=== PATIENT | male | born 1950 | race Caucasian/White ===

== ENCOUNTER → 2016-03-16 | Outpatient (CLI) | payer BC, MEDICARE, OTHER ==
[~2016-03-16] MED LIST: ABILIFY5 MG PO; ACIPHEX20 MG PO; ACTOS 45MG45 MG/TAB PO; ALLEGRA-D 12 HO1 TER PO; AVAPRO TAB150 MG/TAB PO; AVAPRO75 MG PO; BYETTA SC; CIPRO 250MG TA250 MG PO; COZAAR 50MG50 MG/TAB PO; CYANOCOBAL1000 MCG/1 IM; DAYQUIL COLD/FL1 SGL PO; DECONAMINE SR 81 CER PO; DOXYCYCLINE 10100 MG PO; Entex LA PO; FLOMAX 0.40.4 MG/CAP PO; FLONASE NASAL S16 GM NS; GLUCOPHAGE XR500 M1 PO; GLUCOPHAGE XR500 MG PO; LAMICTAL150 MG PO; LANTUS100 U/ML SC; LANTUS100 U/ML SQ; LIPITOR 40MG TA40 MG PO; LORTAB 7.5/5001 TAB PO; Lantus Insulin SC; MOTRIN800 MG PO; MVI; NIGHT-TIME COL300 ML PO; NORCO 325 MG-7.1 TAB PO; NOVOLOG 100U100 U/M1; NOVOLOG 100U100 U/M1 SC; NOVOLOG 100U100 U/M1 SQ; OSCAL 500 TAB500 MG PO; PATADAY 2.5 ML2.5 ML OU; PROVENTIL0.09 MG/A1 IH; SINGULAIR 110 MG/TAB PO; SINGULAIR10 MG PO; SYNTHROID 0.0.025 MG PO; TOFRANIL50 MG PO; VESICARE5 MG PO; VIIBRYD20 MG PO; VITAMIN D 400400 IU PO; ZOCOR40 MG PO; ZYRTEC 10MG10 MG PO; prandin PO
== END ==
LOC: BHSO 13:04
DX: F41.1 Generalized anxiety disorder (principal)

== ENCOUNTER → 2016-04-11 | Outpatient (CLI) | payer BC, MEDICARE, OTHER | LOC: COL.RAD 08:20 | DX: C64.2 Malignant neoplasm of left kidney, except renal pelvis (principal); Z90.5 Acquired absence of kidney | CPT/HCPCS: Q9967 ==

== ENCOUNTER → 2016-05-29 | Outpatient (CLI) | payer BC, MEDICARE, OTHER | LOC: BHSO 11:38 | DX: F43.10 Post-traumatic stress disorder, unspecified (principal) ==

== ENCOUNTER → 2016-11-27 | Outpatient (CLI) | payer BC, MEDICARE, OTHER | LOC: BHSO 11:33 | DX: F33.1 Major depressive disorder, recurrent, moderate (principal) ==

== ENCOUNTER → 2016-12-28 | Outpatient (CLI) | payer BC, MEDICARE, OTHER | LOC: COL.RAD 09:57 | DX: Z01.812 Encounter for preprocedural laboratory examination (principal); N20.0 Calculus of kidney; K43.9 Ventral hernia without obstruction or gangrene; Z90.5 Acquired absence of kidney; Z85.528 Personal history of other malignant neoplasm of kidney | CPT/HCPCS: Q9967 ==

== ENCOUNTER → 2017-01-31 | Outpatient (CLI) | payer BC, MEDICARE, OTHER ==
[~2017-01-31] MED LIST changes: +MIDRIN 325 MG-11 CAP PO; +NYQUIL GENERIC PO
== END ==
LOC: BHSO 13:42
DX: F41.1 Generalized anxiety disorder (principal)

== ENCOUNTER 2017-02-16 06:18 | Day surgery (SDC) | payer BC, MEDICARE, OTHER ==
[~2017-02-16] VITALS: Ht 180.3 cm; Wt 96.8 kg
[2017-02-16] VITALS (11 sets, daily range): BP systolic 115–128; BP diastolic 59–95; PULSE 58–76; TEMP 97.5–98.4
[~2017-02-16 06:18] MED LIST changes: -MIDRIN 325 MG-11 CAP PO; -NYQUIL GENERIC PO
[2017-02-16] MEDS ORDERED: MIDRIN 325 MG-11 CAP PO (07:35)
[2017-02-16] MEDS ORDERED: NYQUIL GENERIC PO (07:36)
[2017-02-17] VITALS: BP 118/62; PULSE 71; TEMP 98.8
[2017-02-17 05:30] VITALS: BP 106/58; PULSE 66; TEMP 97.8
[2017-02-17 08:59] VITALS: BP 119/56; PULSE 70; TEMP 98.1
== END 2017-02-17 12:19 | disposition home or self-care (01) ==
LOC: SDCO 06:18 → SURG 12:25 → SDCO 02-17 12:19
DX: K43.2 Incisional hernia without obstruction or gangrene (principal); K21.9 Gastro-esophageal reflux disease without esophagitis; G47.33 Obstructive sleep apnea (adult) (pediatric); E03.9 Hypothyroidism, unspecified; E78.5 Hyperlipidemia, unspecified; I10 Essential (primary) hypertension; Z90.5 Acquired absence of kidney; N39.41 Urge incontinence; Z98.84 Bariatric surgery status
CPT/HCPCS: OP; C1713; C1781; J0690; J1100; J1170; J1815; J1885; J2405; J2704; J2710; J3010; J7030; J7120

== ENCOUNTER 2017-02-20 21:26 | Emergency (ER) | payer BC, MEDICARE, OTHER ==
[~2017-02-20] VITALS: Ht 180.3 cm; Wt 96.4 kg
[~2017-02-20 21:26] MED LIST changes: +MIDRIN 325 MG-11 CAP PO; +NYQUIL GENERIC PO
[2017-02-20 21:30] VITALS: BP 166/79; TEMP 98.5
[2017-02-20] MEDS ORDERED: MAGCITRATE PO (23:35)
[2017-02-21 00:06] VITALS: PULSE 89
== END 2017-02-21 00:08 | disposition home or self-care (01) ==
LOC: COL.ER 21:26
DX: K59.00 Constipation, unspecified (principal); R33.9 Retention of urine, unspecified; J45.909 Unspecified asthma, uncomplicated; I10 Essential (primary) hypertension; Z90.89 Acquired absence of other organs; Z98.52 Vasectomy status; Z79.4 Long term (current) use of insulin

== ENCOUNTER → 2017-03-29 | Outpatient (CLI) | payer BC, MEDICARE, OTHER ==
[~2017-03-29] MED LIST changes: +MAGCITRATE PO
== END ==
LOC: BHSO 09:54
DX: F41.1 Generalized anxiety disorder (principal)
CPT/HCPCS: G0463

== ENCOUNTER → 2017-06-26 | Outpatient (CLI) | payer BC, MEDICARE, OTHER | LOC: BHSO 10:53 | DX: F43.10 Post-traumatic stress disorder, unspecified (principal) | CPT/HCPCS: G0463 ==

== ENCOUNTER → 2017-10-10 | Outpatient (CLI) | payer BC, MEDICARE, OTHER | LOC: BHSO 11:35 | DX: F43.10 Post-traumatic stress disorder, unspecified (principal) | CPT/HCPCS: G0463 ==

== ENCOUNTER → 2018-04-10 | Outpatient (CLI) | payer BC, MEDICARE, OTHER | LOC: BHSO 11:30 | DX: F33.42 Major depressive disorder, recurrent, in full remission (principal) | CPT/HCPCS: G0463 ==

== ENCOUNTER → 2018-10-01 | Outpatient (CLI) | payer BC, MEDICARE | LOC: BHSO 11:23 | DX: F33.41 Major depressive disorder, recurrent, in partial remission (principal) | CPT/HCPCS: G0463 ==

== ENCOUNTER 2018-10-28 10:52 | Outpatient (RCR) | payer OTHER | END 2018-10-29 11:16 | disposition home or self-care (01) | LOC: WSOH 10:52 | DX: S39.012A Strain of muscle, fascia and tendon of lower back, initial encounter (principal); S33.6XXA Sprain of sacroiliac joint, initial encounter; S46.112A Strain of muscle, fascia and tendon of long head of biceps, left arm, initial encounter; X50.0XXA Overexertion from strenuous movement or load, initial encounter; Y92.214 College as the place of occurrence of the external cause; Y99.0 Civilian activity done for income or pay; E78.00 Pure hypercholesterolemia, unspecified; I10 Essential (primary) hypertension; E11.9 Type 2 diabetes mellitus without complications; F43.10 Post-traumatic stress disorder, unspecified; E03.9 Hypothyroidism, unspecified; F32.9 Major depressive disorder, single episode, unspecified ==

== ENCOUNTER → 2019-01-16 | Outpatient (CLI) | payer BC, MEDICARE, OTHER | LOC: COL.RAD 08:21 | DX: Z85.528 Personal history of other malignant neoplasm of kidney (principal); Z90.5 Acquired absence of kidney | CPT/HCPCS: Q9967 ==

== ENCOUNTER → 2019-04-04 | Outpatient (CLI) | payer BC, MEDICARE, OTHER | LOC: BHSO 10:59 | DX: F43.10 Post-traumatic stress disorder, unspecified (principal) | CPT/HCPCS: G0463 ==

== ENCOUNTER → 2019-08-19 | Outpatient (CLI) | payer BC, MEDICARE, OTHER | LOC: BHSO 10:03 | DX: F33.42 Major depressive disorder, recurrent, in full remission (principal) | CPT/HCPCS: G0463 ==

== ENCOUNTER 2019-10-13 09:00 | Outpatient (RCR) | payer BC, MEDICARE, OTHER | END 2019-12-21 | disposition home or self-care (01) | LOC: WSC | DX: M25.552 Pain in left hip (principal) ==

== ENCOUNTER → 2022-05-04 | Outpatient (CLI) | payer BC, MEDICARE, OTHER | LOC: COL.RAD 15:31 | DX: I65.22 Occlusion and stenosis of left carotid artery (principal); I10 Essential (primary) hypertension ==

== ENCOUNTER → 2022-05-05 | Outpatient (CLI) | payer BC, MEDICARE, OTHER | LOC: COL.VAS 09:02 | DX: I11.9 Hypertensive heart disease without heart failure (principal); I35.1 Nonrheumatic aortic (valve) insufficiency; R29.898 Other symptoms and signs involving the musculoskeletal system ==